=== PATIENT | female | born 1985 | race Caucasian/White ===

== ENCOUNTER 2024-04-27 21:41 | Emergency (ER) | payer OTHER ==
[2024-04-27] MEDS: methylPREDNISolone Sodium Succinate 125 MG/2 ML SDV IVPUSH ONE (22:21)
== END 2024-04-27 23:42 | disposition home or self-care (01) ==
LOC: JD.ED 21:41
DX: T63.441A Toxic effect of venom of bees, accidental (unintentional), initial encounter (principal)
CPT/HCPCS: 96374; 99282; J2919